=== PATIENT | female | born 1985 | race Asian ===

== ENCOUNTER 2018-06-07 14:01 | Outpatient (CLI) | payer OTHER | END 2018-06-07 14:05 | disposition short-term general hospital (02) | LOC: AMB 14:01 | DX: S00.83XA Contusion of other part of head, initial encounter (principal); V49.9XXA Car occupant (driver) (passenger) injured in unspecified traffic accident, initial encounter; Y93.89 Activity, other specified; Y92.89 Other specified places as the place of occurrence of the external cause; M54.5 Low back pain | CPT/HCPCS: A0425; A0429 ==

== ENCOUNTER 2018-06-07 14:12 | Emergency (ER) | payer OTHER ==
[~2018-06-07] VITALS: Ht 170.2 cm; Wt 117.9 kg
[2018-06-07 15:14] LABS: PLATELET COUNT 338 K/uL (152-353)
[2018-06-07 15:23] LABS: POTASSIUM 4.2 mmol/L (3.6-5.2)
[2018-06-07 17:25] VITALS: BP 131/79; TEMP 97.8
== END 2018-06-07 17:25 | disposition home or self-care (01) ==
LOC: ED 14:12
DX: M54.9 Dorsalgia, unspecified (principal); M54.5 Low back pain; I51.7 Cardiomegaly; V89.2XXA Person injured in unspecified motor-vehicle accident, traffic, initial encounter
CPT/HCPCS: 36415; 80053; 80320; 81000; 85027; 96372; 99283; J1885